=== PATIENT | female | born 1945 | race Caucasian/White ===

== ENCOUNTER 2021-04-02 06:44 | Observation (INO) ==
--- NOTE | 2021-03-29 09:56 | Anesthesiology Consultation ---
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 Preoperative COVID19 testing to be completed on 03/29 at [facility] per pt. Will obtain results. PCP Clearance 02/23/21 = patient seen for preoperative consult. Murmur was noted during preoperative assessmentrecommending echocardiogram. EKG was reviewed and within normal limits. Labs are reviewed and were found to be within normal limits. Chest x-ray showed atelectasis of right lower lobe/costophrenic angle. Echocardiogram was ordered. " If the echocardiogram is within normal limits then she will be medically cleared for the surgery." Addendum 02/28/2021 = " ECHO was reviewed. EF normal at 64.7%. Also suggesting mild AV sclerosis, without stenosis. 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 PER MANUEL Harrison 08-31-04 Medications Home Medications Medication Instructions Recorded Confirmed Last Taken aspirin 81 mg PO QAM 02/08/21 03/28/21 Unknown cholecalciferol (vitamin D3) 125 mcg PO QAM 02/08/21 03/28/21 Unknown [Vitamin D3] docusate sodium [Stool Softener] 50 mg PO BID 02/08/21 03/28/21 Unknown glucosamine sulfate [Glucosamine] 500 mg PO QAM 02/08/21 03/28/21 Unknown levothyroxine 137 mcg PO QAM 02/08/21 03/28/21 Unknown lisinopril 40 mg PO QAM 02/08/21 03/28/21 Unknown magnesium 250 mg PO QPM 02/08/21 03/28/21 Unknown meloxicam 15 mg PO QPM 02/08/21 03/28/21 Unknown metoprolol tartrate 25 mg PO BID 02/08/21 03/28/21 Unknown montelukast 10 mg PO PM 02/08/21 03/28/21 Unknown multivitamin 1 tab PO QPM 02/08/21 03/28/21 Unknown omeprazole 20 mg PO HS 02/08/21 03/28/21 Unknown nitrofurantoin monohyd/m-cryst 100 mg PO BID 03/28/21 03/28/21 Unknown [Macrobid] Past Medical History Medical History Asthma Seasonal- well controlled and stable GERD (gastroesophageal reflux disease) Well controlled and stable Hyperlipidemia Hypertension Hypothyroidism Osteoarthritis Thyroid nodule Biopsy showed cancer. S/p total thyroidectomy. No chemo or XRT needed UTI (urinary tract infection) reason for abx Past Surgical History Surgical History History of carpal tunnel release of both wrists History of knee replacement, total bilateral History of open reduction and internal fixation (ORIF) procedure right femur Hx of colonoscopy Hx of hysterectomy Hx of thyroidectomy Hx of tonsillectomy Social History Smoking Status: Never smoker Do You Dip or Chew Tobacco: No Hx Alcohol Use: Yes Alcohol type: wine alcohol intake frequency: holidays/special occasions only Hx Substance Use: No substance use type: does not use Lab Results Anesthesia Preop Results Results Anesthesia Widget: WBC 5.30 K/uL (4.8-10.8) 02/21/21 Hgb 13.3 g/dL (12.0-16.0) 02/21/21 Hct 39.7 % (37-47) 02/21/21 Plt 209 K/uL (130-400) 02/21/21 Na 141 mmol/L (136-145) 02/21/21 K 3.9 mmol/L (3.5-5.1) 02/21/21 Cl 107 mmol/L (98-107) 02/21/21 CO2 27 mmol/L (21-32) 02/21/21 BUN 23 mg/dl (7-18) H 02/21/21 Creat 0.59 mg/dl (0.6-1.2) L 02/21/21 Glucose Level 87 mg/dl (70-99) 02/21/21 PT 10.5 Seconds (9.0-12.0) 02/21/21 PTT 27.1 Seconds (21.0-31.0) 02/21/21 INR 1.0 (0.9-1.1) 02/21/21 HA1c 5.3 % (4.5-5.6) 02/21/21 Blood Type A Negative 02/21/21 Antibody Screen NEGATIVE 02/21/21 Testing Other Testing Electrocardiogram Date: 02/21/21 Findings: + NSR @ (64bpm) Normal EKG per cardio. Chest X-Ray Date: 02/21/21 FINDINGS: Cardiac mediastinal and hilar silhouettes are within normal limits. Mild right hemidiaphragmatic elevation. Mild linear right perihilar and left lung base opacities suggest atelectasis/scarring. Patient is rotated on the lateral view. Mild blunting of the right costophrenic angle. Degenerative changes of the shoulders and spine. IMPRESSION: Blunting of the right costophrenic angle suggestive of atelectasis versus trace pleural effusion. (Will send to PCP for review) Echocardiogram 02/27/2021 Left ventricular systolic function is normal. EF =55-60%. Borderline concentric LVH. Left ventricular wall motion is normal. Aortic valve sclerosis mild without significant aortic valvular stenosis.
--- NOTE | 2021-04-01 09:21 | History & Physical Report ---
Date of Service April 02, 2021 Assessment & Plan (1) Degenerative joint disease of right hip: I have indicated the patient for right total hip replacement. The risks, benefits and complications of surgery were explained to the patient which include but not limited to infection, acute blood loss, DVT/PE, injury to nerves, vessels, bone, soft tissue, arthrofibrosis, chronic pain, failure of the prosthesis, hip dislocation, leg length discrepancy, need for additional surgery, cardiac and pulmonary events and . The patient wished to proceed with surgery and informed consent was obtained at this time. We will plan for 81mg ASA BID post-operatively for DVT prophylaxis. Upon discharge the patient will be discharged home with home health services. Appropriate clearances by PCP were obtained. Patient is asymptomatic for UTI. History of Present Illness Chief Complaint: Right hip DJD Primary Care Provider: Himanshu Danielle DO The patient is a 75 year old female who presents with complaints of severe right hip pain and DJD. The patient has failed outpatient conservative treatments to this point which included NSAIDs, IA corticosteroid injection, home exercise/walking program. The patient's pain and limited function have progressed to the point where they severely hinder their activities of daily living and they no longer tolerate exercise programs. They are requesting to proceed with total hip replacement surgery. 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 PER MANUEL Harrison 10-22-04 morphine AdvReac Mild vomitting Verified 04/02/21 07:24 Home Medications Medication Instructions Recorded Confirmed Type aspirin 81 mg PO QAM 02/08/21 03/28/21 History cholecalciferol (vitamin D3) 125 mcg PO QAM 02/08/21 03/28/21 History [Vitamin D3] docusate sodium [Stool Softener] 50 mg PO BID 02/08/21 03/28/21 History glucosamine sulfate [Glucosamine] 500 mg PO QAM 02/08/21 03/28/21 History levothyroxine 137 mcg PO QAM 02/08/21 03/28/21 History lisinopril 40 mg PO QAM 02/08/21 03/28/21 History magnesium 250 mg PO QPM 02/08/21 03/28/21 History meloxicam 15 mg PO QPM 02/08/21 03/28/21 History metoprolol tartrate 25 mg PO BID 02/08/21 03/28/21 History montelukast 10 mg PO PM 02/08/21 03/28/21 History multivitamin 1 tab PO QPM 02/08/21 03/28/21 History omeprazole 20 mg PO HS 02/08/21 03/28/21 History nitrofurantoin monohyd/m-cryst 100 mg PO BID 03/28/21 03/28/21 History [Macrobid] Past Med/Surg History Medical History Asthma Seasonal- well controlled and stable GERD (gastroesophageal reflux disease) Well controlled and stable Hyperlipidemia Hypertension Hypothyroidism Osteoarthritis Thyroid nodule Biopsy showed cancer. S/p total thyroidectomy. No chemo or XRT needed UTI (urinary tract infection) reason for abx Surgical History History of carpal tunnel release of both wrists History of knee replacement, total bilateral History of open reduction and internal fixation (ORIF) procedure right femur Hx of colonoscopy Hx of hysterectomy Hx of thyroidectomy Hx of tonsillectomy Social History Smoking Status: Never smoker Second Hand Exposure: No; Do You Dip or Chew Tobacco: No; Hx Alcohol Use: Yes Alcohol type: wine Hx Substance Use: No Preferred Language: Slovenian Communication Ability: Effective Escalator Constructor Required: No Beliefs That Will Affect Care: None Current Living Situation: Spouse Feels Safe at Home: Yes Safety Concerns: Feels Safe At This Time Assistive Devices: Cane, Denture - Upper and Glasses Review of Systems Review of Systems: All systems reviewed & are unremarkable except as noted in HPI & below Constitutional: as per Subjective / HPI Physical Exam Physical Exam: RLE NVSI +EHL/FHL/TA/GS SILT grossly, +2 DP pulse, compartments soft NT, limited painful ROM of the hip, antalgic gait. Constitutional: WD/WN, vitals as above Eyes: PERRL, conjunctivae normal, anicteric sclerae ENMT: external ear and nose normal, oropharynx normal Neck: trachea midline, no thyromegaly Respiratory: normal respiratory effort, lungs clear to auscultation Cardiovascular: RRR, no murmur, no edema Gastrointestinal (Abdomen): normal bowel sounds, soft, nontender, no hepatosplenomegaly Musculoskeletal: no cyanosis or clubbing, extremities motor strength 5/5 Skin: no rashes, warm and dry Neurologic: patellar DTR's 2+ bilat, sensation intact Psychiatric: A+Ox3, euthymic affect Lymphatic: no cervical or axillary lymphadenopathy Results & Data Results & Data ([facility]) Diagnostic Findings Multiple views of the hip demonstrates severe DJD with complete loss of the joint space. +osteophytes, +sclerosis, +subchondral cysts.
[~2021-04-02 06:44] MED LIST: ACETAMINOPHEN 500 MG TAB PO SCH; BUPIVACAINE 0.5 % 5 MG/1 ML PF 10ML VIAL ONE; CeleBREX 200 MG CAP PO SCH; FAMOTIDINE 20 MG TAB PO SCH; LR 15ML/HR IV SCH; METOCLOPRAMIDE HCL 10 MG TABLET PO SCH; ROPIVACAINE 0.5% HCL/PF 150 MG, BUPIVACAINE 0.75% MPF 20 ML, EPINEPHrine 30MG/30ML (OR ... INSTIL SCH; TRANEXAMIC ACID 1,000 MG **IV Pre-op IV SCH; ceFAZolin 2000MG 2,000 MG/15 ML SYR IV SCH; dexAMETHasone 4 MG TAB PO SCH
[2021-04-02] MEDS ORDERED: PROPOFOL IV EMULSION 10 MG/ML 20 ML VIAL IV ONE (07:34)
[2021-04-02] MEDS ORDERED: MIDAZOLAM HCL 1 MG/ML 2ML VIAL ONE ×2 (07:34→08:08)
[2021-04-02] MEDS ORDERED: fentaNYL citrate PF 100 MCG/2 ML VIAL ONE ×3 (07:34→10:03)
[2021-04-02] MEDS ORDERED: ONDANSETRON INJ 2 MG/ML 2 ML VIAL ONE (08:08)
--- NOTE | 2021-04-02 08:59 | History & Physical Bridge Note ---
Date of Service April 02, 2021 History & Physical Bridge Note I have examined the patient, reviewed the History & Physical and in the interval since the performance of the History & Physical I have noted the following changes of clinical significance: no changes noted
[2021-04-02] MEDS: TRANEXAMIC ACID 1,000 MG **IV Intra-op IV SCH ×2 (09:23→11:06)
[2021-04-02] MEDS ORDERED: ORTHO JOINT ANESTHETIC ONE (09:23)
[2021-04-02] MEDS ORDERED: DEXAMETHASONE SOD INJ 4 MG/ML VIAL ONE (10:07)
[2021-04-02] MEDS ORDERED: SUCCINYLCHOLINE 100MG/5ML SYR IV ONE (10:11)
--- NOTE | 2021-04-02 11:26 | Post Operative Brief Note ---
Immediate Post Op Note v1 Date of Surgery April 02, 2021 Pre & Post Diagnosis Operation Date: 04/02/21 09:30 Pre-Op Diagnosis: Unilateral Primary Osteoarthrits Post-Op Diagnosis: Unilateral Primary Osteoarthrits I identified the patient and participated in the time-out.: Yes Procedure Operation Date: 04/02/21 09:30 Actual Procedures p Right Total Hip Arthroplasty Posterior(Right) - Jimbo Bowman DO Surgeon Jimbo Bowman DO Street Department Dispatcher Drake Roberts Estimated Blood Loss 225 Findings Consistent with Post-Op Diagnosis Fluids See anesthesia report Specimens Femoral head Anesthesia Type Spinal MAC Complications none Disposition Disposition: Recovery Room Overlapping Procedure I was present for: the critical portions of procedure. I was immediately available: during the entire case. Back up surgeon: was not required during procedure.
[2021-04-02] MEDS ORDERED: ePHEDrine sulfate 50 MG/ML AMP ONE (11:27)
--- NOTE | 2021-04-02 11:30 | Operative Report ---
Post Operative Report Pre & Post Diagnosis Operation Date: 04/02/21 09:30 Pre-Op Diagnosis: Unilateral Primary Osteoarthrits Post-Op Diagnosis: Unilateral Primary Osteoarthrits I identified the patient and participated in the time-out.: Yes Procedure Operation Date: 04/02/21 09:30 Actual Procedures p Right Total Hip Arthroplasty Posterior(Right) - Jimbo Bowman DO Surgeon Jimbo Bowman DO Director [facility] Drake Roberts Estimated Blood Loss 225 Findings Consistent with Post-Op Diagnosis Fluids see anesthesia report Specimens femoral head Anesthesia Type Spinal MAC Complications none Disposition Disposition: Recovery Room Indications The patient is a 71-year-old female who presents with severe progressive right hip DJD who has failed outpatient conservative treatments. I indicated the patient for a total hip replacement and the risks and benefits were explained in detail which included but not limited to infection, bleeding, blood clot, damage to surrounding bone, nerves, vessels, soft tissue, hip dislocation, failure of the prosthesis, leg length discrepancy, need for additional surgery and . The patient agreed to proceed with replacement of the hip and informed consent was obtained. Appropriate clearances were obtained. Description of Procedure COMPONENTS USED: [employer] hip system: Acetabulum size 50 G7 osteo-Ti, femur size 9 standard offset, femoral head 36-3.5, liner 50x36, acetabular screw 30 mm x 1. Following induction of adequate spinal anesthesia, the patient was transferred to the OR table and placed in lateral decubitus position with left hip down. The right hip was prepped and draped in the typical sterile fashion. A timeout was performed, patient identified and site александр confirmed. Appropriate antibiotics were given. A standard posterolateral/Tung-Langenbeck incision was made. Subcutaneous tissue was sharply dissected. Electrocautery was utilized for hemostasis. The fascia was incised throughout the length of the wound and retracted with the Charnley retractor. The bursa was taken down and the short external rotators were identified. The piriformis was tagged with #1 Vicryl. The short external rotators and capsule were divided from the posterior aspect of the femur using electrocautery. The posterior capsule was tagged with #1 Vicryl. Both external rotators and posterior capsule were swept posterior and protected, along with protecting the sciatic nerve. The hip was dislocated by flexion and internally rotation in a controlled manner and exposure of the femoral neck was gained with an old-style Hohmann and a blunt cobra retractor. A femoral cutting guide was utilized for making the appropriate level femoral neck cut with reciprocating saw. The femoral head was removed, measured and reserved on the back table. Next, attention was turned to the acetabulum. A posterior and anterior offset retractor was placed to gain adequate exposure. Acetabular labrum as well as posterior capsule elements were removed using electrocautery and forceps. Fovea centralis was cleared of all soft tissue. Sequential reaming was performed starting at 44 mm and carried up to a 50 mm and decision was made to proceed with impaction of a 50 mm G7 Osteo-Ti cup. This was impacted and held using a single 30 mm acetabular screw. The trial acetabular liner was placed at this time. Next, attention was turned to the proximal femur where a Bovie and pickup was used to further clear short external rotators from their insertion on the femur. Box osteotome and canal finder was used to gain access to the femoral canal and the lateral reamer on power was used to further open the proximal lateral canal. Sequentially rasping was carried up to a 9 which gave good fit and fill of the proximal femur. A trial reduction was carried out with a standard offset femoral neck component a 36-3.5 mm femoral head. The trial reduction was stable in all degrees of rotation with no itju-di-[id number] impingement. The hip was dislocated, trial components were removed and access to the acetabulum was re-established. The trial liner was removed and the cup was irrigated to ensure all debris was removed. The final acetabular liner was inserted and properly seated in the cup. Access to the femur was once more gained and the size 9 femoral stem with standard offset was impacted into position. The hip was once more assessed with the 36-3.5 mm femoral head. Stability was accessed and found to be excellent with equal leg lengths. The hip was dislocated for the last time and the final 36-3.5 ceramic femoral head was impacted in place and the hip was reduced. Range of motion was checked once again and found to be stable. A Betadine soak was performed. After 3 minutes, the hip was once more irrigated with copious sterile saline solution with bacitracin. The timothy-incisional soft tissue was injected utilizing [place] ortho mix which includes a combination of Ropivicaine 0.5% 150mg, Bupivicaine 0.5%/Epinephrine 1:200,000 30ml, Toradol 30mg, Dexamethasone 4mg, Ketamine 10mg, Clonidine 100mcg and NSS 30ml Orthomix solution. The piriformis, external rotators and capsule were repaired to the greater trochanter through bone tunnels using #5 FiberWire. The fascia was closed using #1 Vicryl, subcutaneous tissue was closed using 2-0 Vicryl, and skin was closed with quynh. A sterile dry dressing was applied which included jami incisional VAC. The patient tolerated the procedure well and was transported to PACU in stable condition. Due to the complex nature of the procedure, the entire surgery was performed with the operational assistance of Drake Roberts PA-C. The graduate research assistant, under direct supervision, was involved in the actual performance of all aspects of the surgical procedure including patient positioning, hemostasis, tissue retraction, instrument management and wound closure. I attest to the content of the Intraoperative Record and any orders documented therein. Any exceptions are noted below.
[2021-04-02] MEDS ORDERED: ONDANSETRON INJ 2 MG/ML 2 ML VIAL IV PRN ×2 (11:54→13:30)
[2021-04-02] MEDS ORDERED: NALOXONE HCL 0.4 MG/1 ML VIAL/CARP IV PRN ×2 (11:54→13:30)
[2021-04-02] MEDS ORDERED: LABETALOL HCL IV 5 MG/ML 20ML IV PRN (11:54)
[2021-04-02] MEDS ORDERED: ATROPINE SULFATE 0.1 MG/ML 10ML SYR IV PRN (11:54)
[2021-04-02] MEDS ORDERED: FLUMAZENIL 0.1 MG/1 ML 10 ML VIAL IV PRN (11:54)
[2021-04-02] MEDS ORDERED: ePHEDrine sulfate 50 MG/ML AMP IV PRN (11:54)
[2021-04-02] MEDS ORDERED: PROMETHAZINE HCL 12.5 MG in SODIUM CHLORIDE 0.9% 50 ML IV PRN (11:54)
[2021-04-02] MEDS: fentaNYL citrate PF 100 MCG/2 ML VIAL IV PRN ×3 (12:21→12:36)
--- NOTE | 2021-04-02 13:00 | Anesthesiology Progress Note ---
Date of Service April 02, 2021 Anesthesia Post Procedure Vital Signs Vital Signs: Temp Pulse Pulse Resp BP BP Pulse Ox 04/02/21 12:55 84 19 139/74 95 04/02/21 12:45 36.3 C L 90 16 130/67 95 04/02/21 12:35 88 20 129/65 97 04/02/21 12:25 87 20 130/74 94 04/02/21 12:15 91 H 19 144/78 H 97 04/02/21 12:05 94 H 22 141/85 H 97 04/02/21 11:57 36 C L 100 H 16 127/79 98 04/02/21 07:54 37 C 84 18 133/79 97 Pain Intensity Right Hip: Pain Intensity: 4 Transfer of Care Handoff Completed per policy Notes Mental Status: alert / awake / arousable Patient Amnestic to Procedure: Yes Nausea / Vomiting: adequately controlled Pain: adequately controlled Airway Patency, RR, SpO2: stable & adequate BP & HR: stable & adequate Hydration State: stable & adequate Anesthetic Complications: no major complications apparent
--- NOTE | 2021-04-02 13:04 | XRay Report ---
AP PELVIS, CROSSTABLE LATERAL RIGHT HIP History: Right total hip arthroplasty. Degenerative arthritis. Postop. FINDINGS: The patient is status post a right total hip arthroplasty. The hardware is intact. No fract ure or dislocation. Skin quynh are in place. IMPRESSION: Right total hip arthroplasty. No evidence for hardware complication ACT 112: Negative or not required by law. Electronically signed by: Jose J Hernández M.D. 04/02/2021 1:03 PM
[2021-04-02] MEDS ORDERED: diphenhydrAMINE Capsule 25 MG CAP PO PRN (13:30)
[2021-04-02] MEDS ORDERED: MAGNESIUM HYDROXIDE SUSP 30 ML UDC PO PRN (13:30)
[2021-04-02] MEDS ORDERED: bisacodyL 10 MG SUPP PR PRN (13:30)
[2021-04-02] MEDS ORDERED: oxyCODONE HCL IR 5 MG TAB (IMMEDIATE RELEASE) PO PRN (13:30)
[2021-04-02] MEDS ORDERED: METOCLOPRAMIDE HCL INJ 5 MG/ML 2 ML VIAL IV PRN (13:30)
[2021-04-02] MEDS ORDERED: HYDROmorphone INJ 0.5 MG/0.5 ML SYR IV PRN (13:30)
[2021-04-02] MEDS: KETOROLAC TROMETHAMINE 15 MG/ML VIAL IV SCH ×2 (14:33→21:30)
[2021-04-02] MEDS: ACETAMINOPHEN 500 MG TAB PO SCH ×2 (14:34→21:24)
[2021-04-02] MEDS: SODIUM CHLORIDE 0.9% 1,000 ML IV SCH (14:34)
[2021-04-02] MEDS: ceFAZolin 2000MG 2,000 MG/15 ML SYR IV SCH (17:24)
--- NOTE | 2021-04-02 18:11 | Orthopedic Progress Note ---
Date of Service April 02, 2021 Assessment & Plan (1) Degenerative joint disease of right hip: Status post right total hip arthroplasty -Ancef x24 -DVT prophylaxis: SCDs, teds, 81 mg ASA twice daily -Weight-bear as tolerates right lower extremity -PT/OT -Posterior hip precautions -Postoperative x-ray demonstrates well aligned well fixed prosthesis without fracture or dislocation -A.m. labs -DC planning Admission and Anticipated Discharge Date Admission Date: April 02, 2021 Subjective Post Operative Progress Note Patient seen sitting up in bed, comfortable, denies complaints, pain well controlled, no acute issues. Review of Systems Review of Systems: All systems reviewed & are unremarkable except as noted in HPI & below Constitutional: as per Subjective / HPI Physical Exam Physical Exam: RLE NVSI +EHL/FHL/TA/GS SILT grossly, +2 DP pulse, compartments soft NT, dressing cdi. Constitutional: WD/WN, vitals as above Results & Data ([facility]) Vital Signs (Past 12 Hours) Vital Signs Temp Pulse Pulse Pulse Resp BP BP 04/02/21 16:55 36.7 C 82 16 110/70 04/02/21 15:50 36.4 C L 84 16 117/72 04/02/21 15:00 36.5 C 80 16 136/78 04/02/21 14:20 77 16 134/79 04/02/21 13:50 36.8 C 91 H 16 135/81 04/02/21 13:37 36.3 C L 90 16 128/71 04/02/21 13:25 79 16 130/66 04/02/21 13:15 77 16 123/69 04/02/21 13:05 90 19 121/66 04/02/21 12:55 84 19 139/74 04/02/21 12:45 36.3 C L 90 16 130/67 04/02/21 12:35 88 20 129/65 04/02/21 12:25 87 20 130/74 04/02/21 12:15 91 H 19 144/78 H 04/02/21 12:05 94 H 22 141/85 H 04/02/21 11:57 36 C L 100 H 16 127/79 04/02/21 07:54 37 C 84 18 133/79 Pulse Ox 04/02/21 16:55 97 04/02/21 15:50 96 04/02/21 15:00 99 04/02/21 14:20 98 04/02/21 13:50 97 04/02/21 13:37 95 04/02/21 13:25 97 04/02/21 13:15 96 04/02/21 13:05 98 04/02/21 12:55 95 04/02/21 12:45 95 04/02/21 12:35 97 04/02/21 12:25 94 04/02/21 12:15 97 04/02/21 12:05 97 04/02/21 11:57 98 04/02/21 07:54 97
[2021-04-02] MEDS ORDERED: SENNA 8.6 MG TAB PO SCH (21:00)
[2021-04-02] MEDS ORDERED: CeleBREX 200 MG CAP PO SCH (21:00)
[2021-04-02] MEDS ORDERED: PANTOprazole 40 MG TAB PO SCH (21:00)
[2021-04-02] MEDS: METOPROLOL TARTRATE 25 MG TAB PO SCH (21:25)
[2021-04-02] MEDS: DOCUSATE SODIUM 100 MG CAP PO SCH (21:25)
[2021-04-03] MEDS: ceFAZolin 2000MG 2,000 MG/15 ML SYR IV SCH (01:00)
[2021-04-03] MEDS: KETOROLAC TROMETHAMINE 15 MG/ML VIAL IV SCH ×2 (01:03→08:52)
[2021-04-03] MEDS: SODIUM CHLORIDE 0.9% 1,000 ML IV SCH (01:10)
[2021-04-03] MEDS: ACETAMINOPHEN 500 MG TAB PO SCH ×2 (05:51→13:32)
[2021-04-03] MEDS ORDERED: LEVOTHYROXINE SODIUM 137 MCG TABLET PO SCH (06:30)
[2021-04-03 06:52] LABS: Basophils # (auto) 0.01 K/uL (0-0.2); Basophils % (auto) 0.1 %; Eosinophils # (auto) 0.02 K/uL (0-0.5); Eosinophils % (auto) 0.2 %; Hematocrit (blood only) 30.9 % (37-47); Hemoglobin 10.7 g/dL (12.0-16.0); Immature Granulocytes # (auto) 0.05 K/uL (0.00-0.02); Immature Granulocytes % (auto) 0.4 %; Lymphocytes # (auto) 0.94 K/uL (1.2-3.4); Lymphocytes % (auto) 7.9 %; Mean Corpuscular Hemoglobin 31.3 pg (25-34); Mean Corpuscular Hgb Conc 34.6 g/dL (32-36); Mean Corpuscular Volume 90.4 fL (80-100); Mean Platelet Volume 9.1 fL (7.4-10.4); Monocytes # (auto) 0.97 K/uL (0.11-0.59); Monocytes % (auto) 8.2 %; Neutrophils # (auto) 9.84 K/uL (1.4-6.5); Neutrophils % (auto) 83.2 %; Platelet Count 208 K/uL (130-400); RDW Coefficient of Variation 12.2 % (11.5-14.5); RDW Standard Deviation 40.3 fL (36.4-46.3); Red Blood Count 3.42 M/uL (4.2-5.4); White Blood Count 11.83 K/uL (4.8-10.8)
[2021-04-03 07:26] LABS: BUN Creatinine Ratio 25.4 (10-20); Calcium 8.2 mg/dl (8.5-10.1); Creatinine Clr Calc Pharmacy 70.9 ml/min; Est GFR (African American) 88.2 ml/min; Est GFR (Non-African American) 76.1 ml/min; Potassium 4.1 mmol/L (3.5-5.1)
[2021-04-03] MEDS: DOCUSATE SODIUM 100 MG CAP PO SCH (08:47)
[2021-04-03] MEDS: METOPROLOL TARTRATE 25 MG TAB PO SCH (08:48)
[2021-04-03] MEDS ORDERED: lisinopril 40 MG TAB PO SCH (09:00)
[2021-04-03] MEDS ORDERED: MULTIVITAMIN TAB PO SCH (09:00)
[2021-04-03] MEDS ORDERED: ASPIRIN 81 MG ECTAB PO SCH (09:00)
--- NOTE | 2021-04-03 10:19 | Orthopedic Progress Note ---
Date of Service April 03, 2021 Assessment & Plan (1) Degenerative joint disease of right hip: Status post right total hip arthroplasty POD#1 -Ancef x24 -DVT prophylaxis: SCDs, teds, 81 mg ASA twice daily -Weight-bear as tolerates right lower extremity -PT/OT -Posterior hip precautions -Postoperative x-ray demonstrates well aligned well fixed prosthesis without fracture or dislocation -A.m. labs - as above, hgb 10.7 -DC planning - home with Admission and Anticipated Discharge Date Admission Date: April 02, 2021 Subjective Post Operative Progress Note Patient seen sitting up in bed, comfortable, denies complaints, pain well controlled, no acute issues. Denies F/C/N/V/SOB/CP. Review of Systems Review of Systems: All systems reviewed & are unremarkable except as noted in HPI & below Constitutional: as per Subjective / HPI Physical Exam Physical Exam: RLE NVSI +EHL/FHL/TA/GS SILT grossly, +2 DP pulse, compartments soft NT, dressing cdi. Constitutional: WD/WN, vitals as above Results & Data ([facility]) Vital Signs (Past 12 Hours) Vital Signs Temp Pulse Resp BP Pulse Ox 04/03/21 07:22 36.4 C L 74 16 144/79 H 99 04/03/21 02:47 36.6 C 78 16 127/72 97 04/02/21 22:42 36.6 C 74 16 107/66 97 Laboratory Results 04/03/21 04/03/21 Range/Units 06:11 06:11 WBC 11.83 H (4.8-10.8) K/uL RBC 3.42 L (4.2-5.4) M/uL Hgb 10.7 L (12.0-16.0) g/dL Hct 30.9 L (37-47) % MCV 90.4 (80-100) fL MCH 31.3 (25-34) pg MCHC 34.6 (32-36) g/dL RDW Std Deviation 40.3 (36.4-46.3) fL RDW Coeff of Luna 12.2 (11.5-14.5) % Plt Count 208 (130-400) K/uL MPV 9.1 (7.4-10.4) fL Immature Gran % (Auto) 0.4 % Neut % (Auto) 83.2 % Lymph % (Auto) 7.9 % Trigg % (Auto) 8.2 % Eos % (Auto) 0.2 % Baso % (Auto) 0.1 % Neut # (Auto) 9.84 H (1.4-6.5) K/uL Lymph # (Auto) 0.94 L (1.2-3.4) K/uL Trigg # (Auto) 0.97 H (0.11-0.59) K/uL Eos # (Auto) 0.02 (0-0.5) K/uL Baso # (Auto) 0.01 (0-0.2) K/uL Immature Gran # (Auto) 0.05 H (0.00-0.02) K/uL Sodium 140 (136-145) mmol/L Potassium 4.1 (3.5-5.1) mmol/L Chloride 108 H (98-107) mmol/L Carbon Dioxide 26 (21-32) mmol/L Anion Gap 6.0 (3-11) BUN 20 H (7-18) mg/dl Creatinine 0.77 (0.6-1.2) mg/dl Est Cr Clr Drug Dosing 70.9 ml/min Est GFR ( Amer) 88.2 ml/min Est GFR (Non-Af Amer) 76.1 ml/min BUN/Creatinine Ratio 25.4 H (10-20) Glucose 122 H (70-99) mg/dl Calcium 8.2 L (8.5-10.1) mg/dl
--- NOTE | 2021-04-03 18:46 | Discharge Summary ---
Date of Service April 03, 2021 Admission HPI Per Admitting Provider The patient is a 75 year old female who presents with complaints of severe right hip pain and DJD. The patient has failed outpatient conservative treatments to this point which included NSAIDs, IA corticosteroid injection, home exercise/walking program. The patient's pain and limited function have progressed to the point where they severely hinder their activities of daily living and they no longer tolerate exercise programs. They are requesting to proceed with total hip replacement surgery. Principal Diagnosis Right total hip replacement Discharge Exam RLE NVSI +EHL/FHL/TA/GS SILT grossly, +2 DP pulse, compartments soft NT, dressing cdi. 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 The patient tolerated the procedure well and was taken to the PACU in stable condition. Post-operatively the patient was started on a DVT ppx medication and given appropriate IV antibiotics. Consults were placed to physical therapy, occupational therapy and case management. On POD#1, the patient did well overnight and their pain was well controlled. Labs were drawn and the Hgb was 10.7. The patient progressed well with PT. Dressings were changed at this time and the incision was clean, dry and intact. The patients hospital stay was relatively uneventful and they were deemed stable by the orthopedic team and consultants to be discharged home with on 04/03/21. Discharge Instructions: Upon discharge the patient may weight bear as tolerates through their operative extremity. They were instructed to keep the incision clean and dry at all times. The patient may shower but should not submerge the incision, avoid bathing, pools and hot tubs. The patient was given a script for pain medication and should take as instructed. The patient was given a script for DVT ppx 81mg ASA BID and should take as directed. The patient was instructed to not drive or travel for long distances until cleared to do so. If the patient develops any symptoms of fevers, chills, nausea, vomiting, increased redness, swelling, pain or drainage from the surgical site, they should notify the office and/or proceed to the nearest emergency room. The patient should follow up in 10-14 days after surgery for their routine post-operative follow-up appointment and should call the office, to confirm the date and time. Status post right total hip arthroplasty POD#1 -Ancef x24 -DVT prophylaxis: SCDs, teds, 81 mg ASA twice daily -Weight-bear as tolerates right lower extremity -PT/OT -Posterior hip precautions -Postoperative x-ray demonstrates well aligned well fixed prosthesis without fracture or dislocation -A.m. labs - as above, hgb 10.7 -DC planning - home with Total Time Total Time Spent Total Time Spent (In Minutes): 30 Discharge Plan Discharge Items Patient Disposition: Home - Home Health Services Reason For Visit: Unilateral Primary Osteoarthrits Discharge Diagnosis: Right total hip replacement Condition on Discharge: Good Activity: Per Instructions section Lifting: Wait until after follow-up appointment Bathing: Keep incision dry Bathing Comment: No bathing, pools or hot tubs. Sexual Activity: Wait until after follow-up appointment Exercise/Sports: Wait until after follow-up appointment Driving/Machine Use: No driving. Weightbearing: Full weightbearing Non-emergency contact: Primary Care Provider and Surgeon Call non-emergency contact if: you have any medication questions, your symptoms worsen, your pain is not controlled, your pain is worsening, your pain is unusual for you, your pain is concerning for you, you have a fever, your temperature is above 101, your wound has increased redness, your wound has increased drainage and your wound pain has increased Follow-up/Referrals: Himanshu Danielle DO [Primary Care Provider] - Diet: Regular Addtl Attending Provider Instructions: ACTIVITY RECOMMENDATIONS: SELF CARE INSTRUCTIONS AFTER TOTAL HIP REPLACEMENT Until the incision and soft tissues around your hip have healed, there is a possibility that the hip prosthesis could dislocate. A. Observe the following precautions to prevent dislocation: 1. Don't bend your hip greater than 90 degrees. 2. Avoid crossing your legs or ankles while standing or lying. 3. Sit with your feet placed 6 inches apart. 4. When sitting, keep your knees below your hips. Sit on a firm surface, avoid deep, soft chairs and couches. Use an elevated toilet seat in the bathroom. 5. Don't bend over at the waist. Use a long handled shoehorn and a sock aid to help you put on your shoes and socks. A shot blast equipment operator can help you continuous pickling line pickler objects that are too high or too low to reach. 6. Keep car riding to a minimum for at least one month after surgery. B. Your balance may be shaky for a while. Use crutches or a walker until directed by your doctor. C. Use hand rails when walking on stairs. D. Wear low heeled shoes with non-slip soles. E. Be sure that your floors are free of things that could trip you - throw rugs, electrical cords, small objects. Avoid wet and waxed floors, especially with crutches and canes. F. Try to walk several times a day with rest periods between. G. Continue with all the exercises taught to you in the hospital. Again, make walking a part of your daily routine. SPECIAL CARE INSTRUCTIONS: VERY IMPORTANT TO READ AND REVIEW A. You may still be at risk for phlebitis and blood clots. 1. Wear surgical stockings (ALONSO hose) for 2 weeks after surgery to improve circulation and reduce swelling. 2. Take Aspirin 81mg twice daily for 4 weeks or as directed by your doctor. This is your blood thinner. 3. High risk patients may be prescribed a stronger blood thinner if necessary. 4. If you are on Coumadin normally, your family doctor/housekeeper/custodian/laundry worker should monitor your blood work. Expect a phone call the day of or the day after bloodwork is drawn to adjust your dosage. B. You must take antibiotics before having dental work, bladder, bowel and other surgery. Your doctor will provide you with a permanent card to carry describing precautions. C. Call [facility] if you have a fever, redness or swelling around the incision, cloudy drainage from incision, or sudden increase in pain in your hip, not relieved by your regular pain medication. D. Please call the office at if you have any concerns or questions about your operation or recovery. * YOU MAY SHOWER, NO TUB BATHS UNTIL CLEARED BY YOUR DOCTOR. * WEAR ALONSO HOSE 20 HOURS PER DAY FOR 2 WEEKS. * YOU SHOULD USE A WALKER OR CRUTCHES FOR 2-4 WEEKS. THIS WILL HELP PREVENT STRAIN ON YOUR HIP MUSCLE AND ALLOW IT TO HEAL PROPERLY. YOU MAY WEAN TO A CANE TOLERATED. * MOST PATIENTS WILL HAVE HOME NURSING FOR THERAPY. IF YOU DECIDE TO DO OUTPATIENT PHYSICAL THERAPY, PLEASE SCHEDULE THIS 3 TIMES PER WEEK. *TIMOTHY incisional vac is a special dressing covering your incision. This dressing provides a sterile dry environment while you are healing. The dressing is to be left in place for 7 days post-operatively. Your home nurse or surgeon will remove. If you develop any redness or blisters or have any questions notify your surgeon immediately. FOLLOW UP VISIT: If appointment is not already scheduled: Please call [facility] to make a follow-up appointment for 2 weeks after your surgery at . Pending Studies at Discharge: No Stand-Alone Forms: My [facility], Opioid Pain Management, Smoking Cessation Medications and DC Order Prescriptions: New celecoxib [Celebrex] 200 mg Capsule 200 mg PO BID PRN (Reason: pain/inflammation) Qty: 30 RF: 0 aspirin 81 mg Tablet,Delayed Release (Dr/Ec) 81 mg PO BID Qty: 56 RF: 0 acetaminophen 500 mg Tablet 1,000 mg PO Q8 PRN (Reason: pain/fevers) Qty: 90 RF: 0 oxycodone 5 mg Tablet 5 mg PO Q6H MDD 4 PRN (Reason: pain) Qty: 30 RF: 0 sennosides [Senokot] 8.6 mg Tablet 17.2 mg PO HS PRN (Reason: constipation) Qty: 30 RF: 0 Continued multivitamin Tablet 1 tab PO QPM RF: 0 levothyroxine 137 mcg Tablet 137 mcg PO QAM RF: 0 glucosamine sulfate [Glucosamine] 500 mg Tablet 500 mg PO QAM RF: 0 montelukast 10 mg Tablet 10 mg PO PM RF: 0 magnesium 250 mg Tablet 250 mg PO QPM RF: 0 lisinopril 40 mg Tablet 40 mg PO QAM RF: 0 metoprolol tartrate 25 mg Tablet 25 mg PO BID RF: 0 omeprazole 20 mg Tablet,Delayed Release (Dr/Ec) 20 mg PO HS RF: 0 cholecalciferol (vitamin D3) [Vitamin D3] 125 mcg (5,000 unit) Tablet 125 mcg PO QAM RF: 0 Stool Softener 50 mg Capsule 50 mg PO BID RF: 0 nitrofurantoin monohyd/m-cryst [Macrobid] 100 mg Capsule 100 mg PO BID RF: 0 Discontinued meloxicam 15 mg Tablet 15 mg PO QPM RF: 0 aspirin 81 mg Tablet 81 mg PO QAM RF: 0 Discharge Orders: Discharge Order (Routine); Ordered 04/03/21 Ordered By: Jimbo Patel/Other Patient Handouts: DVT Post Op Prevention Admission Data Admit Date/Time: 04/02/21 12:02 Attending Provider: Jimbo Bowman Admit Provider: Jimbo Bowman Primary Care Provider: Himanshu Danielle Other Interventions: Discharge Summary Assessment (RN) Last Done: 04/03/21 13:23
[2021-04-03] MEDS ORDERED: CeleBREX 200 MG CAP PO SCH (21:00)
== END 2021-04-03 16:03 | disposition home health service (06) ==
LOC: ASU 06:44 → 3E 06:44